=== PATIENT | female | born 1975 | race Caucasian/White ===

== ENCOUNTER 2021-03-23 09:32 | Emergency (ER) | payer SELFPAY ==
--- NOTE | 2021-03-23 10:14 | EDM.PDOC ---
ED HPI GENERAL MEDICAL PROBLEM - General Chief Complaint: Bite:Animal, Insect Stated Complaint: RT ARM HAS A BITE Time Seen by Provider: 03/23/21 10:01 Source of Information: Reports: Patient History Limitations: Reports: No Limitations - History of Present Illness INITIAL COMMENTS - FREE TEXT/NARRATIVE: HISTORY AND PHYSICAL: History of present illness: Patient is a 45-year-old female who presents to the ED today with concern of right forearm possible starting of an infection following a bug bite that occurred 2 to 3 days ago. Patient states that she was at work and she went outside and felt a bug on her right arm. Patient states that she felt a bite and went and slapped the bug. Patient states that she not exactly see what the bug was as it flew off. Patient states that over the past couple days, she has had increasing redness surrounding the bite so was concerned that it was getting infected. Patient denies any other symptoms or concerns. Patient denies fever, chills, chest pain, shortness of breath, or cough. Denies headache, neck stiff ness, change in vision, syncope, or near syncope. Denies nausea, vomiting, abdominal pain, diarrhea, constipation, or dysuria. Has not noted any blood in urine or stool. Patient has been eating and drinking appropriately. Review of systems: As per history of present illness and below otherwise all systems reviewed and negative. Past medical history: As per history of present illness and as reviewed below otherwise noncontributory. Surgical history: As per history of present illness and as reviewed below otherwise noncontributory. Social history: See social history for further information Family history: As per history of present illness and as reviewed below otherwise noncontributory. Physical exam: General: Patient is alert, oriented, and in no acute distress. Patient sitting comfortably on exam table. Patient noted to be hypertensive 190s over 111, otherwise vitally stable and reviewed by me. HEENT: Atraumatic, normocephalic, pupils equal and reactive bilaterally, negative for conjunctival pallor or scleral icterus, mucous membranes moist, TMs normal bilaterally, throat clear, neck supple, nontender, trachea midline. No drooling or trismus noted. No meningeal signs. No hot potato voice noted. Lungs: Clear to auscultation, breath sounds equal bilaterally, chest nontender. Heart: S1S2, regular rate and rhythm without overt murmur Abdomen: Soft, nondistended, nontender. Negative for masses or hepatosplenomegaly. Negative for costovertebral tenderness. Pelvis: Stable nontender. Genitourinary: Deferred. Rectal: Deferred. Skin: Intact, warm, dry. No lesions or rashes noted. Extremities: There is a bug bite to the right forearm with an area of 2 cm of surrounding cellulitis without evidence of abscess with no fluctuance versus inflammation due to bite. Patient has full range of motion of the complete right upper extremity without pain or difficulty. Intact sensation to light and deep touch of the complete right upper extremity. Radial pulses grossly intact the right upper extremity with capillary refill less than 2 seconds. Otherwise, atraumatic, negative for cords or calf pain. Neurovascular unremarkable. Neuro: Awake, alert, oriented. Cranial nerves II through XII unremarkable. Cerebellum unremarkable. Motor and sensory unremarkable throughout. Exam nonfocal. Notes: The area of redness was outlined using a surgical marker. Had thorough discussion with patient to monitoring for signs of improving versus worsening redness and response to antibiotics and Benadryl. I did offer an evaluation for patient's blood pressure which she declines at this time. Strict return precautions thoroughly discussed with patient. Discussed importance for follow-up with a primary care provider. Voices understanding and is agreeable to plan of care. Denies any further questions or concerns at this time. Diagnostics: None Therapeutics: None Prescription: Keflex (patient asked for refill of albuterol inhaler as she just ran out today which I refilled for patient) Impression: Bug bite with cellulitis, right forearm Hypertension Plan: 1. While symptomatic continue to routinely take Benadryl as directed and as discussed. Take medication as prescribed. 2. Please follow up with your Primary care provider as discussed. Return to the ED as needed and as discussed. Definitive disposition and diagnosis as appropriate pending reevaluation and review of above. right forearm Pain Score (Numeric/FACES): 7 - Related Data Allergies Allergy/AdvReac Type Severity Reaction Status Date / Time No Known Allergies Allergy Verified 03/23/21 09:57 Home Meds: Home Meds Albuterol Sulfate [Proair Hfa] 8.5 gm IH Q8HR PRN #1 [email or web address] 03/23/21 [Rx] cephALEXin [Keflex] 500 mg PO Q8H 10 Days #30 cap 03/23/21 [Rx] Past Medical History - Past Health History Medical/Surgical History: Denies Medical/Surgical History - Past Surgical History Female Surgical History: Reports: Section Social & Family History - Family History Family Medical History: No Pertinent Family History - Tobacco Use Tobacco Use Status *Q: Current Every Day Tobacco User Years of Tobacco use: 15 Packs/Tins Daily: 1 - Recreational Drug Use Recreational Drug Use: No ED ROS GENERAL - Review of Systems Review Of Systems: Comprehensive ROS is negative, except as noted in HPI. ED EXAM, ANIMAL BITE - Physical Exam Exam: See Below (see dictation) Course - Vital Signs Last Recorded V/S: Last Vital Signs Temp 97.2 F 03/23/21 09:55 Pulse 84 03/23/21 09:55 Resp 18 03/23/21 09:55 BP 195/111 H 03/23/21 09:55 Pulse Ox 95 03/23/21 09:55 Departure - Departure Time of Disposition: 10:13 Disposition: Home, Self-Care 01 Clinical Impression: Cellulitis Qualifiers: Site of cellulitis: extremity Site of cellulitis of extremity: upper extremity Laterality: right Qualified Code(s): L03.113 - Cellulitis of right upper limb Bug bite Qualifiers: Encounter type: initial encounter Qualified Code(s): W57.XXXA - Bitten or stung by nonvenomous insect and other nonvenomous arthropods, initial encounter Hypertension Qualifiers: Hypertension type: unspecified Qualified Code(s): I10 - Essential (primary) hypertension - Discharge Information Prescriptions: cephALEXin [Keflex] 500 mg PO Q8H 10 Days #30 cap Albuterol Sulfate [Proair Hfa] 8.5 gm IH Q8HR PRN #1 [email or web address] PRN Reason: Cough Referrals: PCP,Not In Area [Primary Care Provider] - Forms: ED Department Discharge Additional Instructions: The following information is given to patients seen in the emergency department who are being discharged to home. This information is to outline your options for follow-up care. We provide all patients seen in our emergency department with a follow-up referral. The need for follow-up, as well as the timing and circumstances, are variable depending upon the specifics of your emergency department visit. If you don't have a primary care physician on staff, we will provide you with a referral. We always advise you to contact your personal physician following an emergency department visit to inform them of the circumstance of the visit and for follow-up with them and/or the need for any referrals to a consulting specialist. The emergency department will also refer you to a specialist when appropriate. This referral assures that you have the opportunity for follow-up care with a specialist. All of these measure are taken in an effort to provide you with optimal care, which includes your follow-up. Under all circumstances we always encourage you to contact your private physician who remains a resource for coordinating your care. When calling for follow-up care, please make the office aware that this follow-up is from your recent emergency room visit. If for any reason you are refused follow-up, please contact the [facility] at and asked to speak to the emergency department charge nurse. [facility] [address] [place] [address] [id number] [facility] [address] [place] [id number] 1. While symptomatic continue to routinely take Benadryl as directed and as discussed. Take medication as prescribed. 2. Please follow up with your Primary care provider as discussed. Return to the ED as needed and as discussed. Sepsis Event Note (ED) - Evaluation Sepsis Screening Result: No Definite Risk - Focused Exam Vital Signs: Vital Signs Temp Pulse Resp BP Pulse Ox 03/23/21 09:55 97.2 F 84 18 195/111 H 95
== END 2021-03-23 10:41 | disposition home or self-care (01) ==
LOC: MW.ED 09:32
DX: S50.861A Insect bite (nonvenomous) of right forearm, initial encounter (principal); L03.113 Cellulitis of right upper limb; I10 Essential (primary) hypertension; Z72.0 Tobacco use; W57.XXXA Bitten or stung by nonvenomous insect and other nonvenomous arthropods, initial encounter
CPT/HCPCS: 99282; 99283